=== PATIENT | male | born 1990 ===

== ENCOUNTER 2021-04-23 11:09 | Outpatient (CLI) | payer OTHER ==
[2021-04-23 11:59] VITALS: BP 115/64
--- NOTE | 2021-04-23 11:59 | SLEEP CARE CONSULTATION ---
Information from patient questionnaire entered by Cece France. I have reviewed and concur with the information entered by Cece France. This document represents the service I personally performed and the decisions made by , Abigail Ramos ARNP. History of Present Illness Service Date and Time: 04/23/2021 1109 Reason for Visit: New patient, Previously diagnosed sleep apnea, sleep apnea on CPAP therapy (on BiPAP) Chief Complaint: reports: Other (Update supplies) Date of Onset: 5 years Usual bedtime: 2200 Time it takes to fall asleep: few minutes Snores at night: Yes Observed to quit breathing while asleep: Yes Sleeps alone due to snoring: No Number of times waking at night: 1 Reasons for waking at night: reports: Bathroom Toss, Turn, or Twitch while sleeping: Yes Recalls having dreams: Yes Usually gets out of bed at: 0530 Feels refreshed in the morning: No Morning headache: No Sleepy or fatigued during the day: Yes Ever fallen asleep while driving: Yes Takes day naps: No Dreams during day naps: No Prior sleep studies: Yes Year and Where: 05/2017 [place] Type of Sleep Study: Polysomnography Additional HPI information: MARILEE STARK was previously diagnosed to have moderate, AHI 25.5 with an RDI of 29.6, obstructive sleep apnea-hypopnea syndrome and comes in today to establish care for BIPAP therapy. Patient last PSG was on 02/16/2017 at [facility] with a titration study done on 04-08-2017 which showed good apnea control on BIPAP 15/10 cmH2O. - Parasomnia Symptoms Ever been unable to move upon waking from sleep: No Walks in sleep: No Talks in sleep: Yes Ever acted out dreams in sleep: No Ever felt weak in the knees when startled or emotional: No Bothered by creepy, crawly, restless sensations in legs: No Problems with memory or concentration: No CPAP Compliance Data - Data Reviewed with Patient Average duration of nightly device use: 6 hours 23 minutes Compliance rate %: 94 Current pressure setting (cmH2O): 15/10 Average residual AHI: 1.0 Central apnea: .1 Obstructive apnea: .8 Hypopnea: .1 Compliance data discussion: He was getting his supplies regularly but moved 2 months ago and has not gotten any more. He last was in [place], [place] and cannot remember their name. He is wearing a full face mask. He does not have a back up mask. He has had to patch up a tube that has a hole in it. He last changed his mask cushion in February. Subjective Patient concerns: denies: aerophagia, mask discomfort, air blowing in eyes, mask leak noise, condensation in mask/hose, nasal congestion, dry mouth, nose, throat, epistaxis, other Observed to snore while using device: No Current pressure setting perceived as: comfortable On therapy, patient: reports: sleeping better, awakening more refreshed, being more awake and alert during the day, more rested overall. denies: drowsiness while driving Initial Johnston Sleepiness Scale score: 11 (in 2020) Past Medical History Past Medical History: reports: Hypertension Social History The patient's occupation is a AM. Patient is and lives in [place]. Have you smoked in the past 12 months: No Alcohol use: No Caffeine use: Yes Caffeine amount and frequency: 150 mg/day Family History Family history of sleep disordered breathing: No Allergies and Home Medications Drug allergies reviewed: Yes (NKDA) Home medication list reviewed: Yes Allergy and home medication list: Lisinopril/HCTZ combination Review of Systems Weight gain over past 5 years: 40 Cardiovascular: reports: high blood pressure Gastrointestinal: denies: heartburn Neurological: denies: headaches Psychiatric: denies: anxiety, depression, mood disorder Ear/Nose/Throat: reports: wisdom teeth removed. denies: sinus problems, injury to nose, tonsillectomy Endocrine: denies: thyroid disease Immunologic: reports: allergies to food or environment (seasonal) Physical Exam Blood Pressure: 115/64 Cuff size: wrist Heart Rate: 80 O2 Saturation: 96 Height: 5 ft 8 in Weight: 299 lb Body Mass Index: 45.4 BMI Classification: Morbidly Obese Heart: regular rate and rhythm Lungs: clear bilaterally Impression and Plan 1. Obstructive Sleep Apnea-Hypopnea Syndrome, moderate, with good treatment compliance and good apnea control. On BIPAP therapy, the patient has better sleep quality and is more rested overall. Patient needs to get supplies. He also would like to transfer to a supply company that is more local. For patient supply concerns patient will be transferred to a new DME company. I will have my summer school coordinator inform of DME options. A DWO prescription will then be made. Patient advised to contact this office if further supply problems. Patient has lost weight. Currently patients BMI is 45.4. Obesity increases the risk of apnea, CPAP pressure requirements and overall health risks especially cardiovascular and diabetes. Thus patient is advised to continue to lose weight. Weight loss can be done with reducing portion size, reducing refined foods and balancing content with vegetables, fruit and whole grains. He is working with a loan analyst referred by his doctor to help him lose weight. The patient's CPAP pressure range should accommodate some weight loss. Symptoms to report for additional pressure adjustment discussed.Patient's apnea severity and rationale for treatment to reduce apnea, improve sleep quality and reduce cardiovascular and cerebrovascular events was reviewed. I also reviewed the benefit of consistent device use of BIPAP for hypertension. * Continue BIPAP pressure at 15/10 cmH2O * Transfer DME * Update supplies as needed * Notify me if snoring with mask or feeling that the pressure is too much or too little * Attempt to lose weight * Call this office if any problems using BIPAP * Return for follow up in 1 year, or sooner if concerns arise Counseling Topics: Spare mask, Weight loss health impact Visit Type: In Office Time Spent with Patient (minutes): 33 Provider Statement: I spent 100% of the Face to Face Visit with the patient with greater than 50% spent counseling the patient and coordination of care.
== END 2021-04-23 11:10 | disposition home or self-care (01) ==
LOC: SC 11:09
PROVIDERS: ATTEND Nurse Practitioner Family
DX: G47.33 Obstructive sleep apnea (adult) (pediatric) (principal); E66.01 Morbid (severe) obesity due to excess calories; Z68.41 Body mass index [BMI] 40.0-44.9, adult
CPT/HCPCS: 99203; 99212

== ENCOUNTER 2021-12-07 08:00 | Outpatient (CLI) | payer OTHER | END 2021-12-07 23:59 | disposition home or self-care (01) | LOC: LAB.N 08:00 | PROVIDERS: ATTEND Physician Assistant Medical | DX: U07.1 COVID-19 (principal) ==